=== PATIENT | female | born 2000 | race Caucasian/White ===

== ENCOUNTER 2020-10-06 20:45 | Emergency (ER) | payer OTHER ==
[~2020-10-06] VITALS: Ht 185.4 cm; Wt 86.4 kg
[2020-10-06 20:50] VITALS: TEMP 98.5
[2020-10-06 21:21] LABS: BASO % 0.5 % (0.0-2.0); EOS # 0.1 (0.0-0.7); GRAN # 2.6 (1.4-6.5); GRAN % 43.8 % (42.2-75.2); HEMATOCRIT 40.7 % (35.0-45.0); HEMOGLOBIN 13.3 g/dl (12.0-15.0); LYMPH # 2.5 (1.2-3.4); LYMPH % 41.9 % (20.0-51.0); MEAN CELL VOLUME 95 fl (80.0-95.0); MEAN CORPUSCULAR HEMOGLOBIN 31 pg (26.0-32.0); MEAN CORPUSCULAR HGB CONC 33 g/dl (33.0-37.0); MONO # 0.7 (0.1-0.6); MONO % 12.6 % (1.7-9.3); PLATELET COUNT 218 K/mm3 (130-400); RED BLOOD COUNT 4.28 M/mm3 (4.10-5.30); REDCELL DISTRIBUTION WIDTH-CV 12.5 % (11.5-14.5)
[2020-10-06 21:32] LABS: ALBUMIN 4.5 gm/dL (3.5-5.0); BILIRUBIN,TOTAL 0.4 mg/dL (0.0-1.0); CALCIUM 9.8 mg/dL (8.4-10.2); CREATININE, serum 0.88 (0.52-1.25); TOTAL PROTEIN 7.3 gm/dL (6.4-8.2)
[2020-10-06 23:01] VITALS: BP 119/76; PULSE 85
== END 2020-10-06 23:01 | disposition home or self-care (01) ==
LOC: COL.ER 20:45
PROVIDERS: Emergency Medicine
DX: K62.89 Other specified diseases of anus and rectum (principal); Z32.02 Encounter for pregnancy test, result negative
CPT/HCPCS: J7120

== ENCOUNTER → 2020-11-02 | Outpatient (CLI) | payer OTHER | LOC: COL.RAD | DX: M84.38XA Stress fracture, other site, initial encounter for fracture (principal) ==

== ENCOUNTER → 2020-11-09 | Outpatient (CLI) | payer OTHER | LOC: COL.PUL 07:49 | DX: R05 Cough (principal) ==